=== PATIENT | female | born 1990 | race African-American/Black ===

== ENCOUNTER 2018-04-14 13:17 | Emergency (ER) | payer OTHER ==
[~2018-04-14] VITALS: Ht 167.6 cm; Wt 136.1 kg
--- NOTE | ~2018-04-14 | EKG ---
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
[~2018-04-14 13:17] MED LIST: ACCUNEB SO1.25 MG/1 INH; HYDROCHLOROTHIA25 M2 PO; IRON325 PO; NAPROSYN500 MG PO; ROXICODONE5 M2 PO; TRINATE TABLET1 TAB PO; XARELTO15 MG PO; ZOFRAN ODT4 MG PO
[2018-04-14 14:19] LABS: URINE BILIRUBIN NEGATIVE (Negative); URINE BLOOD NEGATIVE (Negative); URINE CLARITY CLEAR; URINE COLOR YELLOW; URINE GLUCOSE-RANDOM* NEGATIVE (Negative); URINE KETONES NEGATIVE (Negative); URINE LEUKOCYTES NEGATIVE (Negative); URINE NITRITE NEGATIVE (Negative); URINE PROTEIN (DIPSTICK) NEGATIVE (Negative)
[2018-04-14] MEDS ORDERED: ENOXAPARIN40 MG/0.1 SUBQ (14:20)
[2018-04-14 14:52] LABS: BASOPHILS 0.7 % (0.0-2.0); EOSINOPHILS 0.9 % (0.0-3.0); HEMATOCRIT 33.8 % (37.0-47.0); HEMOGLOBIN 10.8 gm/dL (12.0-15.0); LYMPHOCYTES 21.7 % (24.0-44.0); MCH 22.4 pg (26.0-34.0); MCHC 31.9 g/dL (28.0-37.0); MCV 70.3 fL (80.0-100.0); MONOCYTES 7.3 % (1.0-8.0); PLATELET COUNT 256 thou/uL (150-400); POLYS 69.4 % (36.0-66.0); RBC 4.81 mil/uL (4.20-5.00); RDW 18.4 % (10.5-14.5); WBC 7.1 thou/uL (4.0-11.0)
[2018-04-14 15:04] LABS: ANION GAP 9 mmol/L (7-16); BUN 5 mg/dL (7-18); CALCIUM 9.4 mg/dL (8.5-10.1); CHLORIDE 102 mmol/L (98-107); CO2 23 mmol/L (21-32); CREATININE 0.6 mg/dL (0.6-1.0); GLUCOSE 81 mg/dL (74-106); POTASSIUM 3.6 mmol/L (3.5-5.1); SODIUM 134 mmol/L (136-145)
[2018-04-14 15:10] LABS: ALBUMIN 2.9 g/dL (3.4-5.0); DIRECT BILIRUBIN < 0.1 mg/dL (<0.1-0.3); SGOT 16 U/L (15-37); SGPT 16 U/L (30-65); TOTAL BILIRUBIN 0.2 mg/dL (<0.1-1.0); TOTAL PROTEIN 8.3 g/dL (6.4-8.2)
[2018-04-14 15:36] LABS: ANISOCYTOSIS 1+; HYPOCHROMASIA 1+
[2018-04-14] MEDS ORDERED: NAPROSYN500 MG PO (16:37)
[2018-04-14 17:02] VITALS: BP 115/66
== END 2018-04-14 17:02 | disposition home or self-care (01) ==
LOC: ER 13:17
PROVIDERS: Emergency Medicine
DX: O26.891 Other specified pregnancy related conditions, first trimester (principal); R10.30 Lower abdominal pain, unspecified; R11.0 Nausea; J45.909 Unspecified asthma, uncomplicated; Z3A.13 13 weeks gestation of pregnancy

== ENCOUNTER 2019-10-27 01:11 | Emergency (ER) | payer MEDICAID ==
[~2019-10-27] VITALS: Ht 162.6 cm; Wt 140.6 kg
[~2019-10-27 01:11] MED LIST changes: +ENOXAPARIN40 MG/0.1 SUBQ
[2019-10-27] MEDS ORDERED: MELOXICAM15 MG PO (01:38)
[2019-10-27] MEDS ORDERED: HYDROCHLOROTH12.5 M2 PO (01:38)
[2019-10-27] MEDS ORDERED: METFORMIN HCL500 M3 PO (01:43)
[2019-10-27 04:37] VITALS: BP 151/105
== END 2019-10-27 04:39 | disposition home or self-care (01) ==
LOC: ER 01:11
DX: R51 Headache (principal); J45.909 Unspecified asthma, uncomplicated; E11.9 Type 2 diabetes mellitus without complications